=== PATIENT | female | born 1990 ===

== ENCOUNTER 2020-12-27 15:59 | Emergency (ER) | payer OTHER ==
[2020-12-27 16:33] VITALS: BP 147/73
--- NOTE | 2020-12-27 18:08 | Emergency Department Report ---
Chief Complaint: Abdominal Pain Stated Complaint: BACK PAIN, ABD PAIN - HPI History of Present Illness: 29-year-old -[place] female presents to the emergency room complaining of intermittent lower abdominal pain and lower back pain for the last 2 months. Patient states that she had an in August with taking methotrexate at 6 weeks . Patient comes in today requesting for an ultrasound stating she is not sure what the product of conception has been expelled. Patient states she has had 2 normal menstrual cycles since . Patient denies any fever chills no nausea no vomiting no vaginal discharge no vaginal bleeding. Patient was seen by Geena in November 29 and had STD evaluation. They recommend that patient follow-up with the [facility]. Patient states she has been calling [facility] for several weeks and nobody returned her call therefore she came in to be e valuated. - Exam Vital Signs: Vital Signs 12/27/20 16:30 Temperature 97.9 F Pulse Rate 75 Respiratory 18 Rate Blood Pressure 147/73 [Right] O2 Sat by Pulse 99 Oximetry Physical Exam: General: Awake, appropriately interactive, no acute distress. Neck: Supple. Full range of motion intact. Cardiovascular: Normal peripheral perfusion. Pulmonary: No respiratory distress. Patient is speaking normally without use of accessory muscles. Skin: No apparent rashes or lesions. Neurological: No facial asymmetry. Speech is clear. Follows commands. Patient is alert and oriented. Musculoskeletal: Full range of motion, no crepitus. No tenderness to palpate nonerythematous no edema test appreciated. Able to bear weight and ambulate without difficulty. Distal neurovascular and motor/sensory function is intact. Psych: Cooperative. Appropriate mood and affect. MSE screening note: Focused history and physical exam performed. Due to findings the following was ordered: 29-year-old -[place] female presents to the emergency room complaining of intermittent lower abdominal pain and lower back pain for the last 2 months. Patient states that she had an in August with taking methotrexate at 6 weeks . Patient comes in today requesting for an ultrasound stating she is not sure what the product of conception has been expelled. Patient states she has had 2 normal menstrual cycles since . Patient denies any fever chills no nausea no vomiting no vaginal discharge no vaginal bleeding. Patient was seen by Geena in November 29 and had STD evaluation. They recommend that patient follow-up with the [facility]. Patient states she has been calling [facility] for several weeks and nobody returned her call therefore she came in to be evaluated. Discussed with patient that she has had 2 normal menstrual cycles. Explained to patient she has not had any fever chills no nausea no vomiting does not appear to be septic or any distress. Discussed with patient that she can follow-up with an [facility] near the hospital. Patient verbalized understanding and is very grateful for the referrals. Also discussed with patient she can try ibuprofen as she may have some pelvic congestion secondary to her menstrual cycle should be starting on December 30. ED Disposition for MSE Disposition: MED SCREENING EXAM-LEFT Is pt being admited?: No Does the pt Need Aspirin: No Condition: Stable Instructions: Abdominal Pain (ED) Additional Instructions: Recommend ibuprofen which will help with pelvic cramps and pelvic congestion especially right before your cycle. Like for you to follow-up with an [facility] I have listed several below for your convenience. Referrals: [facility] [Provider Group] - 3-5 Days [facility], [facility] [Provider Group] - 3-5 Days [facility] [Provider Group] - 3-5 Days [facility] [Provider Group] - 3-5 Days
== END 2020-12-27 17:20 | disposition left against medical advice (07) ==
LOC: ED 15:59
DX: R10.30 Lower abdominal pain, unspecified (principal); M54.5 Low back pain; Z53.21 Procedure and treatment not carried out due to patient leaving prior to being seen by health care provider